=== PATIENT | male | born 2000 | race Caucasian/White ===

== ENCOUNTER 2025-01-29 10:47 | Emergency (ER) | payer MEDICAID ==
[~2025-01-29] VITALS: Ht 167.6 cm; Wt 61.6 kg
--- NOTE | 2025-01-29 11:19 | Physician Documentation ---
History of Present Illness ~ Chief Complaint: Leg Pain Stated Complaint: L LEG PAIN Time Seen by MD: 11:08 HPI This is a 24-year-old gentleman who presents for evaluation of pain in his right calf that developed sometime yesterday morning. No obvious trigger, trauma provocation. The particular palliating or aggravating factors. Pain got worse throughout the preceding 24 hours. He developed some swelling, redness on the posterior aspect of his calf. This never happened in the past. No risk factors for DVT such as recent surgery, immobilization, clotting disorders. Tylenol did not help significantly his pain. Denies any other symptoms. Denies any concerns for tobacco, alcohol or illicit substances use Medication Reconciliation Allergies: Coded Allergies: No Known Allergies (Unverified , 01/29/25) Review of Systems ROS 10 point review of systems was performed and unless noted above in HPI is negative for acute process/complaint. Physical Exam Vital Signs: Temperature: 98.7, Source: Temporal, Heart Rate: 86, Respiratory Rate: 18, BP: 125/77, Pulse Oximetry: 99, Weight: 61.650 Physical Exam Physical examination: GENERAL: Awake, alert, oriented, GCS 15, no apparent distress, non-toxic appearing, answers questions, follows commands appropriately. HEENT: Atraumatic, normocephalic, pupils equal, extraocular muscles intact Active gross movements, sclerae anicteric, mucus membranes moist, no stridor. NECK: Midline, no JVD CARDIOVASCULAR: Good skin perfusion without evidence of pallor, mottling. PULMONARY: Nonlabored, symmetric chest rise, no audible wheezing, no accessory muscle use, no respiratory distress, speaking in full sentences. GASTROINTESTINAL: Not distended. NEUROLOGIC: Lucid with normal mental status. Normal facial symmetry. Moves all extremities symmetrically and with purpose. No truncal ataxia. Speech is fluid without evidence of dysarthria or aphasia, no focal deficits appreciated. EXTREMITIES: Acute deformities Skin: warm, dry PSYCHIATRIC: Normal affect, normal insight, normal concentration. Focused exam: [] Left lower extremity is examined. There is no crepitus, no violaceous changes, it is tender to palpation reproducing chief complaint. Neurovascularly intact distally. Cap refill less than 2 seconds. Progress Results/Orders Results/Orders Orders - MICKIE LAGUNA DO Vl Venous (01/29/25 11:09) Tib/Fib (01/29/25 11:59) Completed Orders - MICKIE LAGUNA DO Vl Venous (01/29/25 11:09) Tib/Fib (01/29/25 11:59) Ketorolac Trometh 30mg/Ml Vial (Toradol (01/29/25 11:15) Cbc/Diff (01/29/25 11:18) CK (01/29/25 11:18) MG (01/29/25 11:18) CMP (01/29/25 11:18) Medications Received in ER Medications (Trade) Dose Ordered Sig/Ross Route PRN Reason Start Time Stop Time Status Last Admin Dose Admin (Toradol inj. 30mg/ml) 30 mg ONCE ONCE IM 01/29/25 11:15 01/29/25 11:16 DC 01/29/25 11:48 30 MG Vital Signs 01/29/25 01/29/25 10:57 11:48 Temp 98.7 Pulse 86 Resp 18 16 B/P (MAP) 125/77 Pulse Ox 99 Laboratory Tests Test 01/29/25 11:48 White Blood Count 8.1 Red Blood Count 5.34 Hemoglobin 16.3 Hematocrit 48.2 Mean Corpuscular Volume 90.2 Mean Corpuscular Hemoglobin 30.6 Mean Corpuscular Hemoglobin Concent 33.9 Red Cell Distribution Width 13.0 Platelet Count 275 Mean Platelet Volume 7.5 Neutrophils (%) (Auto) 74.9 Lymphocytes (%) (Auto) 14.5 L Monocytes (%) (Auto) 9.0 Eosinophils (%) (Auto) 0.9 Basophils (%) (Auto) 0.7 Neutrophils # (Auto) 6.1 Lymphocytes # (Auto) 1.2 Monocytes # (Auto) 0.7 Eosinophils # (Auto) 0.1 Basophils # (Auto) 0.1 CBC Comment Sodium Level 140 Potassium Level 4.1 Chloride Level 104 Carbon Dioxide Level 29.9 Anion Gap 6 L Blood Urea Nitrogen 10 Creatinine 0.83 Estimated GFR/1.73 m2 > 90 BUN/Creatinine Ratio 12.0 Glucose Level 99 Calcium Level 9.0 Magnesium Level 2.1 Total Bilirubin 0.6 Aspartate Amino Transf (AST/SGOT) 48 H Alanine Aminotransferase (ALT/SGPT) 61 Alkaline Phosphatase 100 Total Creatine Kinase 453 H Total Protein 7.4 Albumin 4.0 Globulin 3.4 Albumin/Globulin Ratio 1.2 Chemistry Comments Medical Decision Making Findings Facility Status: ED Holds, RME process The plan was discussed with the patient, who demonstrates clear understanding of the plan and is in agreement with the plan unless otherwise noted in the chart. All questions have been answered, all concerns were addressed unless otherwise documented. I was available throughout their ED stay for frequent reassessment and questions. Differential Diagnoses (considered and possible or likely): [Muscle sprain, dehydration, electrolyte derangement, Myositis, less likely rhabdomyolysis, less likely DVT, less likely fracture or dislocation, clinically highly unlikely to represent arterial occlusion or necrotizing fasciitis] ??Differential Diagnoses (considered and unlikely, not requiring evaluation currently): [See above] MDM Data Please see [facility] for the following: Independent Historians and external Records Review. Historian: [Patient] Independent Historians: ?[None] Medication Management: [Reviewed medication list] Social History and determinants: [Reviewed] Please see the body of the note for the following: Any independent interpretations of ECG, imaging studies. All vitals signs/haemodynamics, ordered tests were independently reviewed and interpreted by myself. Nursing triage complaint and vitals reviewed, additional nursing notes were reviewed as available and I agree unless otherwise noted or documented in contradiction in the chart Vital Signs: Independently reviewed Labs: Independently interpreted Imaging: Independently interpreted Old Medical Records: Independently reviewed, see [facility] for relevant summary and information Pulse Oximetry: [98%] interpreted as [normal on room air] by me Additionally notably showing: [Hemodynamically stable. CK is elevated but not meeting criteria for up the. Ultrasound notable for superficial thrombophlebitis. X-rays unremarkable.] Tests considered but not ordered include: [Advanced imaging has been considerably but does not appear to be necessary] Social Determinants of Health Impact: Patient was evaluated in [facility], or [facility] [place] access to healthcare due to below par ratio of patient to medical providers. [] Comorbid Conditions Impacting Present Evaluation and Care/Treatment: [None reported] Management Discussions with other Healthcare Providers: [None] Treatment and Disposition Medication Management (Given or considered): [Pain management]. See EMR for details Consideration for Hospitalization/Escalation/Deescalation of Care: Admission for observation has been considered, [however the patient is able to tolerate p.o., their symptoms are controlled, they are able to rely on oral medications, and their chief complaint/diagnosis can be managed on outpatient basis.] ?ED Course:?[No clinical deterioration] ?Shared decision making:?[Patient is hemodynamically stable for discharge home with follow with their primary care provider. [ ] Specific and cautious return precautions provided and discussed with full understanding. Any incidental findings were also discussed and follow up recommendations given. [] All questions answered. Patient/family were able to verbalize back return precautions. Patient/family agree to plan. Copies of imaging and laboratory studies were provided.] Code status:?FULL Please see the full Electronic Medical Record for full details of nursing documentation, medications list, other records of complete past medical history and conditions, vital signs, laboratory studies, and any radiologic study interpretations by radiologists. Portions of this note were completed using [employer] dictation software and as a result there may exist minor errors in spelling. I have reviewed elements of past family and social history and agree as included in note. Departure Disposition: 01 HOME / SELF CARE / HOMELESS Impression: Primary Impression: Pain of left calf Additional Impression: Superficial thrombophlebitis Condition: Improved Discharge Instructions: Thrombophlebitis Referrals: NO PRIMARY CARE PROVIDER (PCP) Education Educated: Patient Educated regarding: diagnosis, treatment, prognosis, need for follow up Signature Scribe Signature: No scribe Attestation: This note accurately reflects clinical decisions, work performed by myself, DO LUZ ELENA Dangelo NICHOLAS M DO January 29, 2025 11:19
[2025-01-29] MEDS: ketorolac trometh 30MG/ML vial 30 MG/ML VIAL IM ONE (11:48)
[2025-01-29 12:03] LABS: BASOPHILS # (AUTO) 0.1 X10'3 (0-0.2); BASOPHILS % (AUTO) 0.7 % (0-1); EOSINOPHILS # (AUTO) 0.1 X10'3 (0-0.9); EOSINOPHILS % (AUTO) 0.9 % (0-6); HEMATOCRIT 48.2 % (42.0-52.0); HEMOGLOBIN 16.3 g/dl (14.0-17.9); LYMPHOCYTES # (AUTO) 1.2 X10'3 (1.1-4.8); LYMPHOCYTES % (AUTO) 14.5 % (21-51); MEAN CORPUSCULAR HEMOGLOBIN 30.6 PG (27.0-31.0); MEAN CORPUSCULAR HGB CONC 33.9 g/dL (33.0-36.5); MEAN CORPUSCULAR VOLUME 90.2 FL (78-98); MEAN PLATELET VOLUME 7.5 FL (7.4-10.4); MONOCYTES # (AUTO) 0.7 X10'3 (0-0.9); NEUTROPHILS # (AUTO) 6.1 X10'3 (1.8-7.7); NEUTROPHILS % (AUTO) 74.9 % (42-75); PLATELET COUNT 275 X10'3 (140-440); RED BLOOD COUNT 5.34 X10'6 (4.70-6.10); WHITE BLOOD COUNT 8.1 X10'3 (4.5-11.0)
--- NOTE | 2025-01-29 12:16 | VASCULAR REPORT ---
Venous Doppler examination left lower extremity INDICATION: Pain and palpable cord in the calf TECHNIQUE: Duplex venous sonography was performed with real-time and flow sensitive images submitted for evaluation. FINDINGS: Normal phasic venous flow. Veins are fully compressible. No filling defects in the deep ve nous system. There are nonocclusive clots in the superficial varicose veins of the left calf IMPRESSION: 1. No evidence of deep vein thrombosis. 2. There is superficial vein thrombophlebitis in the left calf 3. Report given to the referring physician by the exhibit technician
[2025-01-29 12:20] LABS: ALANINE AMINOTRANSFERASE 61 U/L (12-78); ALBUMIN/GLOBULIN RATIO 1.2 (1.1-1.5); ALKALINE PHOSPHATASE 100 IU/L (46-116); ANION GAP 6 (8-16); ASPARTATE AMINO TRANSFERASE 48 U/L (10-37); BILIRUBIN,TOTAL 0.6 MG/DL (0.1-1.0); BLOOD UREA NITROGEN 10 MG/DL (7-18); CHLORIDE 104 MMOL/L (99-107); CREATINE KINASE 453 U/L (39-308); CREATININE 0.83 MG/DL (0.60-1.10); GLUCOSE 99 MG/DL (70-104); MAGNESIUM 2.1 MG/DL (1.5-2.4); POTASSIUM 4.1 MMOL/L (3.5-5.1); SODIUM 140 MMOL/L (135-145); TOTAL CARBON DIOXIDE 29.9 MMOL/L (24-32); TOTAL PROTEIN 7.4 G/DL (6.4-8.2); eCRCL 119 ML/MIN; eGFR > 90 ML/MIN
--- NOTE | 2025-01-29 12:38 | RADIOLOGY REPORT ---
EXAM: DI TIB/FIB 2 VWS CLINICAL INDICATION: pain, NO INJURY TECHNIQUE: DI TIB/FIB 2 VWS Comparison: None FINDINGS/IMPRESSION: There is no evidence of acute fracture or dislocation. The visualized joint space is well maintained. The alignment is anatomical. There is no radiopaque foreign body.
[2025-01-29 14:38] VITALS: BP 116/75; PULSE 76; RESP 15; TEMP 98.7; O2SAT 98
[2025-02-01] MEDS ORDERED: KETO10TA2 PO (10:06)
== END 2025-01-29 14:39 | disposition home or self-care (01) ==
LOC: ER 10:48
DX: I80.02 Phlebitis and thrombophlebitis of superficial vessels of left lower extremity (principal)
CPT/HCPCS: 36415; 73590; 80053; 82550; 83735; 85025; 93971; 96372; 99285; J1885